=== PATIENT | female | born 1970 | race Caucasian/White ===

== ENCOUNTER 2019-03-30 13:41 | Emergency (ER) | payer BC, SELFPAY ==
[2019-03-30] MEDS ORDERED: Ondansetron PF 4 MG/2 ML Vial ONE (14:15)
[2019-03-30] MEDS ORDERED: Ketorolac Tromethamine 30 MG/ML VIAL ONE (14:15)
[2019-03-30 14:25] LABS: #Basophils 0.1 thou/uL (0.0-0.2); #Eosinphils 0.2 thou/uL (0.0-0.7); #Lymphocytes 2.5 thou/uL (1.20-3.40); #Monocytes 0.8 thou/uL (0.11-0.59); #Neutrophils 6.4 thou/uL (1.40-6.50); %Basophils 0.7 % (0.0-1.0); %Eosinophils 1.8 % (0.0-10.0); %Lymphocytes 25.3 % (21.0-51.0); %Monocytes 7.8 % (0.0-10.0); %Neutrophils 64.5 % (42.0-75.0); Mean Corpuscular HGB CONC 33.7 g/dL (32.0-36.0); Mean Corpuscular Hemoglobin 31.1 pg (27.0-31.0); Mean Corpuscular Volume 92.2 fL (78.0-98.0); Mean Platelet Volume 10.2 fL (7.4-10.4); Platelet Count 232 thou/uL (130-400); RBC Distribution Width 11.9 % (11.5-14.5)
[2019-03-30 14:38] LABS: ALT (SGPT) 26 U/L (8-55); AST (SGOT) 19 U/L (5-34); Albumin 4.3 g/dL (3.5-5.0); Alkaline Phosphatase 60 U/L (40-150); Anion Gap 13 mmol/L (10-20); BUN (Urea Nitrogen) 16 mg/dL (9.8-20.1); Bilirubin, Total 0.4 mg/dL (0.2-1.2); Calc. Creatinine Clearance 0 mL/min (70-130); Calcium 9.7 mg/dL (7.8-10.44); Carbon Dioxide 26 mmol/L (22-29); Chloride 107 mmol/L (98-107); Estimated GFR-MDRD 79; Globulin 2.6 g/dL (2.4-3.5); Glucose 146 mg/dL (70-105); Lipase 32 U/L (8-78); Potassium 3.9 mmol/L (3.5-5.1); Protein, Total 6.9 g/dL (6.0-8.3); Sodium 142 mmol/L (136-145)
[2019-03-30 15:42] LABS: Bilirubin Negative (Negative); Blood, Urine Large (Negative); Clarity Slightly Cloudy (Clear); Glucose, Urine (Dipstick) Negative (Negative); Leukocyte Negative (Negative); Nitrite Negative (Negative); Protein, Urine (Dipstick) 30 mg/dL (Neg-Trace)
[2019-03-30 15:48] LABS: Pregnancy Test - Urine (BHCG) Negative (Negative); Pregu Control Background? CLEAR/WHITE (CLR/WHITE); Pregu Control Bar Appear? YES (CONTROL BAR)
[2019-03-30 15:50] LABS: RBC/HPF 21-50 HPF (0-3); Squamous Epithelial 0-3 HPF (0-3); WBC/HPF 0-3 HPF (0-3)
[2019-03-30 15:51] LABS: Bacteria/HPF 1+ HPF (None Seen)
[2019-03-30] MEDS ORDERED: Acetaminophen/Codeine 30-300mg Tablet ONE (15:53)
--- NOTE | 2019-03-30 17:04 | CT ---
CT ABDOMEN AND PELVIS WITH CONTRAST: Date: 03/30/[address] of the abdomen and pelvis was done for evaluation of right lower quadrant pain. Axial slice s were acquired, followed by coronal reconstructions. There is a 3.0 mm calculus in the mid right ureter at about the L4 level that is causing mild right h ydronephrosis. No other calculi were seen in the right kidney, but there is a small exophytic cyst in its lower pole. The left kidney, however, does have a few additional renal calcifications in it, whi ch are nonobstructing. There may be even an area of scarring in the lower pole of this kidney. No ure teral calculi are seen on this side. Remainder of the scan was unremarkable. The lung bases are clear. The liver, spleen, pancreas, adre nal glands and aorta showed no acute change. The bowel showed no distention or wall thickening. No free air or free fluid was seen. The pelvis shows no mass, inflammatory change, or fluid. IMPRESSION: 3.0 mm calculus in the mid-right ureter at the L4 level causing mild right hydroneph rosis. POS: HOME
== END 2019-03-30 16:00 | disposition home or self-care (01) ==
LOC: BURERS 13:41
DX: N13.2 Hydronephrosis with renal and ureteral calculous obstruction (principal); E78.5 Hyperlipidemia, unspecified; I10 Essential (primary) hypertension; F17.210 Nicotine dependence, cigarettes, uncomplicated; F32.9 Major depressive disorder, single episode, unspecified; Z79.899 Other long term (current) drug therapy
CPT/HCPCS: 74177; 80053; 81003; 81015; 81025; 83690; 85025; 87086; 96361; 96374; 96375; J1885; J2405